=== PATIENT | male | born 1960 | race African-American/Black ===

== ENCOUNTER 2018-09-01 18:50 | Emergency (ER) | payer OTHER ==
[~2018-09-01] VITALS: Ht 185.4 cm; Wt 87.5 kg
[~2018-09-01 18:50] MED LIST: CELEBREX50 MG; DULCOLAX5 MG; FISH OIL300 MG; FLEXERIL PO; KEFLEX500 MG PO; LEVOTHYROXIN0.088 MG PO; LIPITOR20 MG PO; MOBIC7.5 MG PO; NEURONTIN100 MG PO; NITROGLYCERIN0.4 MG SUBLING; NORFLEX100 MG PO; NORVASC 5 MG TAB5 MG PO; PREDNISONE 10 M10 MG PO; TRAMADOL 50 MG50 MG PO
[2018-09-01 19:25] LABS: BASOPHILS 0.5 % (0.0-2.0); EOSINOPHILS 3.5 % (0.0-3.0); HEMATOCRIT 37.9 % (42.0-52.0); HEMOGLOBIN 12.9 gm/dL (14.0-18.0); LYMPHOCYTES 22.1 % (24.0-44.0); MCH 32.2 pg (26.0-34.0); MCHC 34.2 g/dL (28.0-37.0); MCV 94.3 fL (80.0-100.0); MONOCYTES 4.2 % (1.0-8.0); PLATELET COUNT 204 thou/uL (150-400); POLYS 69.7 % (36.0-66.0); RBC 4.02 mil/uL (4.50-6.00); RDW 15.4 % (10.5-14.5); WBC 7.1 thou/uL (4.0-11.0)
[2018-09-01 19:33] LABS: CALCIUM 9.1 mg/dL (8.5-10.1); CREATININE 1.2 mg/dL (0.7-1.3); POTASSIUM 3.9 mmol/L (3.5-5.1)
[2018-09-01 19:39] LABS: ALBUMIN 3.6 g/dL (3.4-5.0); TOTAL BILIRUBIN 0.6 mg/dL (<0.1-1.0); TOTAL PROTEIN 6.9 g/dL (6.4-8.2)
[2018-09-01] MEDS ORDERED: KEFLEX500 M1 PO (20:13)
[2018-09-01] MEDS ORDERED: NORCO 5-325 TA1 EACH PO (20:13)
[2018-09-01 20:42] VITALS: BP 101/71
== END 2018-09-01 20:43 | disposition home or self-care (01) ==
LOC: ER 18:50
PROVIDERS: Physician Assistant
DX: T20.26XA Burn of second degree of forehead and cheek, initial encounter (principal); T31.0 Burns involving less than 10% of body surface; F17.210 Nicotine dependence, cigarettes, uncomplicated; I10 Essential (primary) hypertension; E03.9 Hypothyroidism, unspecified; Z88.8 Allergy status to other drugs, medicaments and biological substances; Z91.013 Allergy to seafood

== ENCOUNTER → 2018-09-07 | Outpatient (CLI) | payer OTHER ==
[~2018-09-07] MED LIST changes: +KEFLEX500 M1 PO; +NORCO 5-325 TA1 EACH PO
== END ==
LOC: HYPER 06:53
DX: T20.30XA Burn of third degree of head, face, and neck, unspecified site, initial encounter (principal); T31.0 Burns involving less than 10% of body surface; E03.9 Hypothyroidism, unspecified; I10 Essential (primary) hypertension; F17.290 Nicotine dependence, other tobacco product, uncomplicated; F41.9 Anxiety disorder, unspecified; Z79.82 Long term (current) use of aspirin; X08.8XXA Exposure to other specified smoke, fire and flames, initial encounter; Y93.89 Activity, other specified; Y92.89 Other specified places as the place of occurrence of the external cause; Y99.8 Other external cause status

== ENCOUNTER → 2020-10-12 | Outpatient (CLI) | payer OTHER ==
[~2020-10-12] VITALS: Ht 185.4 cm; Wt 90.9 kg
[~2020-10-12] MED LIST changes: +ALFUZOSIN HCL10 MG PO; +ANUSOL-HC30 GM TOP; +ASPIRIN EC325 M1 PO; +BACLOFEN 10MG T10 MG PO; +CELEXA 10 MG TA10 M1 PO; +LACTULOSE PO; -LEVOTHYROXIN0.088 MG PO; +LIPITOR 40 MG T40 M1 PO; -LIPITOR20 MG PO; +LYRICA 50 MG50 MG PO; +MELOXICAM15 MG PO; -MOBIC7.5 MG PO; +NASONEX17 GM NASAL; +NEXIUM 24HR20 M1 PO; +OMEGA 3 1,0001 EACH PO; +SYNTHROID150 MCG PO; +VIAGRA100 MG PO; +VOLTAREN GEL 1100 G1 TOP; +ZANAFLEX4 M1 PO
[2020-10-12 08:31] VITALS: BP 154/98; BP 156/103
--- NOTE | 2020-10-12 09:17 | NUR ---
Pain Clinic Assessment: 1. History of Osteoarthritis: Left Lower Extremity Right Lower Extremity SPINE History of Rheumatoid Arthritis: Not Applicable 2. Height: 6 ft. 1 in. 185.4 cm. Weight: 200.4 lb. oz. 90.901 kg. Patient's BMI: 26.4 3. Vital Signs: BP: 154/98 Pulse: 63 Resp: 20 Temp: 02 Sat: 96 ECG Mon: 4. Pain Intensity: 10 5. Fall Risk: Dizziness: Y Needs help standing or walking: Y Fallen in the last 3 months: N Fall risk comments: 6. Patient on Blood Thinner: None 7. History of Hypertension: Y 8. Opioid Therapy greater than 6 weeks: N Opiate Contract Signed: 9. Risk Assessment Tool Provided: 10. Functional Assessment Tool: MODERATE 11. Recreational Drug Use: Current within past 3 mos Drug Type: MARIJUANA Tobacco Use: Light Tobacco Smoker Tobacco Type: Cigarettes Amount or Packs/day: 1/4 How Many Years: 30 Alcohol Use: Yes Frequency: Daily Quant: 6 PACK 1/2 PINT
== END ==
LOC: PAIN 06:50
PROVIDERS: ATTEND Anesthesiology Pain Medicine
DX: M47.812 Spondylosis without myelopathy or radiculopathy, cervical region (principal); I10 Essential (primary) hypertension; E03.9 Hypothyroidism, unspecified; M25.551 Pain in right hip; M19.90 Unspecified osteoarthritis, unspecified site; G89.29 Other chronic pain

== ENCOUNTER → 2020-11-09 | Outpatient (CLI) | payer OTHER ==
[2020-10-24 08:21] VITALS: BP 129/84
[~2020-11-09] VITALS: Ht 185.4 cm; Wt 90.4 kg
[2020-11-09 12:35] VITALS: BP 101/67
--- NOTE | 2020-11-09 12:45 | NUR ---
Pain Clinic Assessment: 1. History of Osteoarthritis: Left Lower Extremity Right Lower Extremity SPINE History of Rheumatoid Arthritis: Not Applicable 2. Height: 6 ft. 1 in. 185.4 cm. Weight: 199.4 lb. oz. 90.447 kg. Patient's BMI: 26.3 3. Vital Signs: BP: 101/67 Pulse: 76 Resp: 16 Temp: 02 Sat: 98 ECG Mon: 4. Pain Intensity: 8 5. Fall Risk: Dizziness: N Needs help standing or walking: N Fallen in the last 3 months: N Fall risk comments: 6. Patient on Blood Thinner: None 7. History of Hypertension: Y 8. Opioid Therapy greater than 6 weeks: N Opiate Contract Signed: 9. Risk Assessment Tool Provided: 10. Functional Assessment Tool: MODERATE 11. Recreational Drug Use: Current within past 3 mos Drug Type: MARIJUANA Tobacco Use: Light Tobacco Smoker Tobacco Type: Cigarettes Amount or Packs/day: 3 CIGGS How Many Years: 20 Alcohol Use: Yes Frequency: Daily Quant: 2
== END | disposition home or self-care (01) ==
LOC: PAIN 10-24 06:39
PROVIDERS: ATTEND Anesthesiology Pain Medicine
DX: M54.16 Radiculopathy, lumbar region (principal); M47.812 Spondylosis without myelopathy or radiculopathy, cervical region; G89.4 Chronic pain syndrome; I10 Essential (primary) hypertension; E03.9 Hypothyroidism, unspecified; M19.90 Unspecified osteoarthritis, unspecified site; Z98.890 Other specified postprocedural states; Z79.899 Other long term (current) drug therapy; Z88.8 Allergy status to other drugs, medicaments and biological substances

== ENCOUNTER 2020-12-09 09:31 | Inpatient (IN) | payer OTHER ==
[~2020-12-09] VITALS: Ht 185.4 cm; Wt 86.2 kg
[2020-12-09] VITALS (7 sets, daily range): BP systolic 148–191; BP diastolic 86–107
--- NOTE | ~2020-12-09 | HC ---
[facility] [place] [address] CONSULTATION Name: MOE CAIN Room #: 216-P ADM IN M.R.#: [id number] Admission: 12/09/20 Attend Phys: Piero Orta MD Discharge: Date of : 58 Report #: [id number] THIS REPORT FOR: cc: FAM - Family physician unknown FAM - Family physician unknown Chani Garza DO ~ DATE OF SERVICE: 12/09/2020 NEUROLOGY CONSULTATION HISTORY OF PRESENT ILLNESS: The gentleman is a 60-year-old male who came to the Emergency Room because he feels "like a robot." The patient drinks heavily every day. He admitted to drinking "as much as I can." He also smokes 5 cigarettes a day. He was experiencing tingling in his limbs that has not changed from 2 weeks ago, but had also been seen by a neurologist at [facility]. What this workup or if a workup has even been done consists of, I do not know. The patient became agitated in the Emergency Room at about 12 o'clock and was given Geodon 20 mg IM stat and lorazepam 1 mg IV stat. By the time the patient got to [address] [place] [address], he was obtunded and was barely arousable even with a sternal rub. A code stroke was called. The patient had a repeat scan of his head, which was unremarkable and I was asked to see the patient immediately because of his change in mentation. The patient is still obtunded and cannot provide any history, so this previous history is obtained from the medical record and by speaking with the Emergency Room physician. PAST MEDICAL HISTORY: Hypertension, hypothyroidism, back pain, hip pain, degenerative joint disease, polyarthralgia, carpal tunnel syndrome, spondylosis. PAST SURGICAL HISTORY: Repair of a right lower extremity fracture. MEDICATIONS: At home; amlodipine 10 mg daily, levothyroxine 150 mcg daily, atorvastatin 40 mg daily, citalopram 40 mg daily, diclofenac gel q.i.d., alfuzosin 10 mg daily, Nasonex 2 sprays daily, Zanaflex 4 mg t.i.d., lactulose 10 grams daily, aspirin 325 mg daily, Lyrica 100 mg t.i.d. ALLERGIES: DOXYCYCLINE and SHRIMP. SOCIAL HISTORY: The patient smokes cigarettes. He drinks alcohol, which typically consists of beer and tyson. He also uses recreational drugs including marijuana, cocaine and PCP. PHYSICAL EXAMINATION: VITAL SIGNS: Temperature 35.8, pulse rate 76, respiratory rate 17, blood [address] [address] CONSULTATION Name: MOE CAIN Room #: 216-[facility]#: [id number] Admission: 12/09/20 Attend Phys: Piero Orta MD Discharge: Date of : 58 Report #: [id number] pressure 161/97, bedside pulse oximetry 97%. LABORATORY DATA: Hematology: White blood cell count 5, hemoglobin 13.9, hematocrit 42.7, MCV 94.3, platelet count 206,000. Urinalysis, trace ketones, trace blood. ABG: pH 7.379, pCO2 of 45.9, pO2 of 85, oxygen saturation 96.2%. Chemistry: Sodium 141, potassium 3.7, chloride 105, carbon dioxide 29, BUN 10, creatinine 0.9, GFR 104, glucose 86. Calcium 8.8, phosphorus 3, magnesium 1.8. Liver functions are normal with the exception of AST, which is 45. Ammonia 24. Creatinine kinase 472, lipase 541. TSH 0.529. Toxicology positive for PCP, cocaine, marijuana. Serum alcohol level less than 10. NEUROLOGIC: When I initially examined the patient, he was barely responsive to sternal rub. I went back 10 or 15 minutes later and he became awake. I asked him where he was, he said "hospital." Cranial nerves 2 through 12 are grossly intact. Motor exam demonstrates symmetrical movement of all 4 extremities with tone and bulk normal. Reflexes were trace throughout. Plantar responses are extensor on the left, flexor on the right. There was no obvious evidence of dysmetria. Gait was not tested. IMPRESSION: I suspect the patient's episode of obtundation was secondary to medication effect. I have ordered an MRI of the head with and without contrast and MRI of the cervical spine with and without contrast for tomorrow. B12 level is pending. His thyroid is normal and he is on levothyroxine 100 mcg daily. I would be cautious about giving this gentleman sedation, although he does need to be monitored for alcohol withdrawal. If he does become agitated, I would recommend consulting Psychiatry. We have also requested his medical records from [facility], particularly any Neurology records and testing. Dr. Laird will be following the patient as of Thursday. By: 1631 44 Chani Garza, DO /nt
--- NOTE | 2020-12-09 09:55 | NUR ---
OBTAINED VERBAL CONSENT TO TREAT PATIENT PER GUARDIAN RUSH CAIN ([facility] [place]) [phone], VERIFIED BY #2 RN.
[2020-12-09 10:19] LABS: ABSOLUTE NEUTROPHILS 3.5 thou/uL (1.4-8.2); BASOPHILS 0.4 % (0.0-2.0); EOSINOPHILS 5.4 % (0.0-3.0); HEMATOCRIT 42.7 % (42.0-52.0); HEMOGLOBIN 13.9 gm/dL (14.0-18.0); LYMPHOCYTES 19.4 % (24.0-44.0); MCH 30.8 pg (26.0-34.0); MCHC 32.7 g/dL (28.0-37.0); MCV 94.3 fL (80.0-100.0); MONOCYTES 5.5 % (1.0-8.0); PLATELET COUNT 206 thou/uL (150-400); POLYS 69.3 % (36.0-66.0); RBC 4.53 mil/uL (4.50-6.00); RDW 16.2 % (10.5-14.5)
--- NOTE | 2020-12-09 10:21 | NUR ---
INSURANCE CARDS X2 AND ID GIVEN DIRECTLY BACK TO PATIENT, WITNESSED HIM PLACE HIS CARDS DIRECTLY BACK INTO HIS WALLET.
[2020-12-09 10:27] LABS: CALCIUM 8.8 mg/dL (8.5-10.1); CREATININE 0.9 mg/dL (0.7-1.3); POTASSIUM 3.7 mmol/L (3.5-5.1)
[2020-12-09 10:37] LABS: ALBUMIN 3.6 g/dL (3.4-5.0); DIRECT BILIRUBIN 0.2 mg/dL (<0.1-0.2); TOTAL BILIRUBIN 0.7 mg/dL (0.2-1.0); TROPONIN-I 0.07 ng/mL (<0.06)
[2020-12-09 10:46] LABS: MAGNESIUM 1.8 mg/dL (1.8-2.4)
[2020-12-09 11:16] LABS: URINE BILIRUBIN NEGATIVE (Negative); URINE BLOOD TRACE (Negative); URINE CLARITY CLEAR; URINE COLOR YELLOW; URINE GLUCOSE-RANDOM* NEGATIVE (Negative); URINE KETONES TRACE (Negative); URINE LEUKOCYTES-REFLEX NEGATIVE (Negative); URINE NITRITE-REFLEX NEGATIVE (Negative); URINE PROTEIN (DIPSTICK) NEGATIVE (Negative); URINE SPECIFIC GRAVITY 1.015 (1.005-1.035); URINE UROBILINOGEN 0.2 E.U./dl (0.2-1.0)
[2020-12-09 11:23] LABS: AMP/METHAMP Negative (Negative); BARBITURATES Negative (Negative); BENZODIAZEPINES Negative (Negative); COCAINE POSITIVE (Negative); METHADONE Negative (Negative); OPIATES Negative (Negative); PCP POSITIVE (Negative)
--- NOTE | 2020-12-09 15:23 | NUR ---
code stroke called at 1508. patient responds to hard stimuli. moving extremities. coughing and opening eyes. per emar patient recieved a dose of ativan and geodon in ED. orders for head CT and stat neuro consult placed. Dr. braun will speak with Dr. love (neurologist)
[2020-12-09 15:59] LABS: BE(vivo) 0.8 mmol/L (-2 to +3); HCO3 26.5 mmol/L (22.0-26.0); PCO2 45.9 mmHg (35.0-45.0); pH 7.379 (7.360-7.450); sO2 96.2 % (92.0-98.0)
--- NOTE | 2020-12-09 16:32 | NUR ---
PT ARRIVED AT 1420 FROM THE ER WITH NO HANDOFF REPORT OR TELEPHONE REPORT. EMERGENCY ROOM TECH, ATTEMPTED TO GET PATIENT FROM STRETCHER TO BED, PT FELL BACK ONTO THE ER STRETCHER. PT WHEN I ARRIVED IN THE ROOM, PT WAS OBTUNDED, ONLY OPENING EYES TO HARD STERNAL RUBS AND MUMBLING AT TIMES. DR. QUINN WAS NOTIFIED OF PTS CONDITION. DR QUINN STATES PT WAS ALERT AND VERBAL IN THE ER SPEAKING IN FULL SENTENCES. DR QUINN STATES TO CALL A CODE STROKE. PT TO CT WITH PRIMARY RN AND GRAHAM RN. PT REMAINED OBTUNDED DURING THE SCAN. PTS CT HEAD WAS NEGATIVE. NEUROLOGY SEEN PT ON 2 NORTH AND STATES PT IS JUST SLEEPING. DR QUINN STATES TO LEAVE HIM ON 2NORTH VERSUS ICU TRANSFER. PTS VSS. PT REMAINS ASLEEP. WILL CONTINUE TO MONITOR.
--- NOTE | 2020-12-09 23:36 | NUR ---
UPON MIDNIGHT VITAL SIGNS PATIENT FOUND TO HAVE HIGH BLOOD PRESSURE 166/107. PROVIDER CONTACTED WITH ONETIME MEDICATION GIVEN. NURSE TO CONTINUE TO ASSESS.
[2020-12-10 03:33] LABS: HEMATOCRIT 47.9 % (42.0-52.0); HEMOGLOBIN 15.6 gm/dL (14.0-18.0); MCHC 32.6 g/dL (28.0-37.0); MCV 95.3 fL (80.0-100.0); RBC 5.03 mil/uL (4.50-6.00); RDW 16.4 % (10.5-14.5); WBC 4.9 thou/uL (4.0-11.0)
[2020-12-10 03:46] LABS: ANION GAP 8 mmol/L (7-16); BUN 10 mg/dL (7-18); CHLORIDE 109 mmol/L (98-107); CO2 29 mmol/L (21-32); CREATININE 1.1 mg/dL (0.7-1.3); GLUCOSE 83 mg/dL (74-106); POTASSIUM 3.8 mmol/L (3.5-5.1); SODIUM 146 mmol/L (136-145); TROPONIN-I <0.06 ng/mL (<0.06)
[2020-12-10 03:58] VITALS: BP 135/86
--- NOTE | 2020-12-10 07:38 | EKG ---
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 : 1960 Requested By: Anthony Bahena Order Number: [id number] MD: Maury Snow Measurements Intervals [place] Rate: 55 P: 64 SD: 169 QRS: 43 QRSD: 89 T: 48 QT: 462 QTc: 442 Interpretive Statements Sinus rhythm Supraventricular bigeminy Baseline wander in lead(s) V5 Compared to ECG 09/16/2016 06:39:38 Left ventricular hypertrophy no longer present Myocardial infarct finding no longer present Electronically Signed On 12-10-2020 7:38:32 [employer] by Maury Snow [email or web address] <ELECTRONICALLY SIGNED> By: Maury Snow MD, [facility] 12/10/20737 7 7 Maury Snow MD, [facility] /EPI
[2020-12-10 07:44] VITALS: BP 142/88
--- NOTE | 2020-12-10 08:53 | NUR ---
ASSUMED PT CARE AT 0700. PT RESTING AT THIS TIME. 0840, ASSESSMENT PERFORMED AND CHARTED, PT A&OX4 AND WAS ABLE TO COMPLETE AN MRI SCREENING. MEDICATION ADMINISTRATION. WILL CONTINUE TO MONITOR.
[2020-12-10 12:01] VITALS: BP 150/92
--- NOTE | 2020-12-10 12:26 | 2DMMODE ---
[facility] [place] [address] [place] [address] 2 D/M-MODE ECHOCARDIOGRAM Name: MOE CAIN Room #: 216-P ADM IN M.R.#: [id number] Admission: 12/09/20 Attend Phys: Piero Orta MD Discharge: Date of : 58 Report #: [id number] THIS REPORT FOR: cc: FAM - Family physician unknown FAM - Family physician unknown Angel Hurt MD [facility] ~ APPROVED REPORT Study performed: 12/10/2020 11:45:08 EXAM: Comprehensive 2D, Doppler, and color-flow Echocardiogram Patient Location: Bedside Room #: 216 Status: routine BSA: 2.13 HR: 54 bpm BP: 142/88 mmHg Rhythm: Bradycardia Other Information Study Quality: Good Indications Hypertension/HDD 2D Dimensions RVDd: 24.08 mm IVSd: 8.08 (7-11mm) LVOT Diam: 23.37 (18-24mm) LVDd: 58.47 mm PWd: 6.59 (7-11mm) Ascending Ao: 30.32 (22-36mm) LVDs: 42.83 (25-40mm) Left Atrium: 37.14 (27-40mm) Aortic Root: 33.38 mm IVC: 19.00 mm Volumes Left Atrial Volume (Systole) Single Plane 4CH: 19.59 mL Single Plane 2CH: 44.62 mL Aortic Valve AoV Peak Sascha.: 1.33 m/s AO Peak Gr.: 7.03 mmHg LVOT Max P.37 mmHg LVOT Max V: 0.92 m/s GLORIA Vmax: 2.97 cm2 [facility] [address] [place] [address] 2 D/M-MODE ECHOCARDIOGRAM Name: MOE CAIN Room #: 216-P [facility] IN [facility].#: [id number] Admission: 12/09/20 Attend Phys: Alfredo Meier Discharge: Date of : 58 Report #: [id number] Mitral Valve E/A Ratio: 0.7 MV Decel. Time: 216.55 ms MV E Max Sascha.: 0.52 m/s MV A Sascha.: 0.74 m/s MV PHT: 62.80 ms IVRT: 96.89 ms Pulmonary Vein P Vein S: 0.34 m/s P Vein A: 0.24 m/s P Vein D: 0.30 m/s P Vein A Dur.: 143.0 msec P Vein S/D Ratio: 1.13 Tricuspid Valve TR Peak Sascha.: 2.35 m/s TR Peak Gr.: 22.07 mmHg PA Pressure: 32.00 mmHg Left Ventricle Left ventricle is dilated. There is normal LV segmental wall motion. There is normal left ventricular wall thickness. Left ventricular systolic function is at the lower limits of normal LVEF 50%. Mild diastolic dysfunction Right Ventricle The right ventricle is normal size. The right ventricular systolic function is normal. Atria The left atrium size is normal. The right atrium size is normal. Aortic Valve The aortic valve is normal in structure, trileaflet. No aortic regurgitation is present. There is no aortic valvular stenosis. Mitral Valve The mitral valve is normal in structure. Mild mitral regurgitation. No evidence of mitral valve stenosis. Tricuspid Valve The tricuspid valve is normal in structure. There is mild tricuspid regurgitation. Estimated PAP 30 mmHg. Pulmonic Valve [facility] [address] [place] [address] 2 D/M-MODE ECHOCARDIOGRAM Name: MOE CAIN Room #: 216-P [facility] IN M.R.#: [id number] Admission: 12/09/20 Attend Phys: Alfredo Meier Discharge: Date of : 58 Report #: [id number] The pulmonary valve is normal in structure. There is no pulmonic valvular regurgitation. Great Vessels The aortic root is normal in size. IVC is normal in size and collapses <50% with inspiration. Pericardium There is no pericardial effusion. <Conclusion> Left ventricular systolic function is at the lower limits of normal There is normal LV segmental wall motion. LVEF 50%. Mild diastolic dysfunction The aortic valve is normal in structure, trileaflet. No aortic regurgitation or stenosis The mitral valve is normal in structure. Mild mitral regurgitation. There is mild tricuspid regurgitation. Estimated pulmonary artery pressure of 30 mmHg. There is no pericardial effusion. <ELECTRONICALLY SIGNED> By: Angel Hurt MD, FACC 12/10/20 1226 1226 1226 Angel Hurt MD, FACC /INF
[2020-12-10 15:28] VITALS: BP 140/83
--- NOTE | 2020-12-10 17:25 | NUR ---
RN ENTERED THE UNIT FROM ICU, PT HAD A SPEAKER TURNED UP AT A MODERATE VOLUME PLAYING RAP MUSIC THAT HAD INAPPROPRIATE LANGUAGE. I ENTERED THE ROOM AND ASKED THE PATIENT TO TURN IT DOWN. I STATED THAT HE MAY HAVE THE SPEAKER AT A LOW VOLUME THAT NO ONE CAN HEAR FROM THE HALLWAY, PT STATES TO JUST CLOSE HIS "FUCKING" DOOR, I STATED TO THE PATIENT THAT HE IS A HIGH FALL RISK AND THAT I CANNOT CLOSE HIS DOOR. PT AGREED TO KEEP THE VOLUME AT A LOW LEVEL. 5 MINUTES LATER, I COULD AGAIN HEAR THE MUSIC FROM THE NURSES STATION, I AGAIN ASKED THE PATIENT TO TURN IT DOWN. I STATED TO THE PATIENT IF THE VOLUME GETS LOUD AGAIN THAT WE WILL HAVE TO REEVALUATE THE SPEAKER. PT STATES "CLOSE THE FUCKING DOOR AND LEAVE ME ALONG." I EDUCATED TO THE PATIENT AGAIN I CANNOT CLOSE THE DOOR DUE TO HIM BEING A FALL RISK.
[2020-12-10 19:26] VITALS: BP 147/95
[2020-12-11 04:30] VITALS: BP 148/86
[2020-12-11 08:00] VITALS: BP 149/99
--- NOTE | 2020-12-11 08:04 | NUR ---
Pt cooperative most of night until around 0300. Yelling and cussing at RN, insist he has not taken any of his meds. Had overview of Mar with patient of meds ordered. Remains agitated with cigwa 7- Ativan given this am. Cont plan of care
--- NOTE | 2020-12-11 09:24 | NUR ---
met with patient who admits with nstemi. Patient reports he lives in home alone. 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 Therapy evals in process. He does have a walker/cane in home as needed. PCP Dr Melonie Mcleod from [facility]. Patient reports he has service from [facility] 5 days a week they assist with cooking, cleaning and medication management. Plan home once stable possible HH care. Therapy evals in process. Message with [facility] to call [facility] regarding services.
[2020-12-11 11:40] VITALS: BP 162/99
[2020-12-11] MEDS ORDERED: BENICAR20 MG PO (12:05)
[2020-12-11] MEDS ORDERED: HYDROCHLOROTHIA25 M1 PO (13:51)
[2020-12-11 15:20] VITALS: BP 140/102
--- NOTE | 2020-12-11 15:50 | NUR ---
AAOX4. DENIES CP, SOA. FALL PRECAUTIONS IN PLACE. SR PER TELE.
[2020-12-11 19:58] VITALS: BP 149/85
[2020-12-12 05:07] VITALS: BP 154/99
--- NOTE | 2020-12-12 07:50 | NUR ---
ASSUMED PT CARE AT 1900. VSS. PT A&0X4, WANTS TO GO HOME. PT STATED HE USUALLY TAKES LYRICA AND NOT GABAPENTIN FOR HIS NEUROPATHY. DR QUINN NOTIFIED THIS AM. PT IS STABLE, HAD A RESTFUL NOC, WILL CONTINUE TO MONITOR.
[2020-12-12 08:57] VITALS: BP 154/99
[2020-12-12 09:18] VITALS: BP 144/103
--- NOTE | 2020-12-12 16:58 | NUR ---
ASSUMED CARE OF PT AT 0700, PT WAS DISCHARGED AND LEFT THE UNIT AT 0930
== END 2020-12-12 09:36 | disposition home or self-care (01) | DRG 551 ==
LOC: ER 09:31 → 2N 12:34 → EROBS 12:34 → 2N 14:18
PROVIDERS: Emergency Medicine; ADMIT Hospitalist; ATTEND Hospitalist
DX: M48.02 Spinal stenosis, cervical region (principal); G92 Toxic encephalopathy; I21.4 Non-ST elevation (NSTEMI) myocardial infarction; M48.04 Spinal stenosis, thoracic region; F19.10 Other psychoactive substance abuse, uncomplicated; R77.8 Other specified abnormalities of plasma proteins; G89.29 Other chronic pain; I10 Essential (primary) hypertension; E03.9 Hypothyroidism, unspecified; F14.19 Cocaine abuse with unspecified cocaine-induced disorder; M19.09 Primary osteoarthritis, other specified site; M54.16 Radiculopathy, lumbar region; T42.4X5A Adverse effect of benzodiazepines, initial encounter; F17.210 Nicotine dependence, cigarettes, uncomplicated; G62.1 Alcoholic polyneuropathy; Z87.81 Personal history of (healed) traumatic fracture; Z88.8 Allergy status to other drugs, medicaments and biological substances; Y92.89 Other specified places as the place of occurrence of the external cause; Z79.82 Long term (current) use of aspirin; Z79.899 Other long term (current) drug therapy; Z82.49 Family history of ischemic heart disease and other diseases of the circulatory system; Z28.21 Immunization not carried out because of patient refusal
CPT/HCPCS: 10081

== ENCOUNTER → 2021-02-06 | Outpatient (CLI) | payer OTHER ==
[~2021-02-06] VITALS: Ht 185.4 cm; Wt 88.2 kg
[~2021-02-06] MED LIST changes: +BENICAR20 MG PO; +HYDROCHLOROTHIA25 M1 PO
[2021-02-06 09:16] VITALS: BP 126/72
--- NOTE | 2021-02-06 09:35 | NUR ---
Pain Clinic Assessment: 1. History of Osteoarthritis: Left Lower Extremity Right Lower Extremity SPINE History of Rheumatoid Arthritis: Not Applicable 2. Height: 6 ft. 1 in. 185.4 cm. Weight: 194.5 lb. oz. 88.225 kg. Patient's BMI: 25.7 3. Vital Signs: BP: 126/72 Pulse: 54 Resp: 16 Temp: 02 Sat: 100 ECG Mon: 4. Pain Intensity: 10 5. Fall Risk: Dizziness: N Needs help standing or walking: Y Fallen in the last 3 months: N Fall risk comments: 6. Patient on Blood Thinner: None 7. History of Hypertension: Y 8. Opioid Therapy greater than 6 weeks: N Opiate Contract Signed: 9. Risk Assessment Tool Provided: 10. Functional Assessment Tool: MODERATE 11. Recreational Drug Use: Current within past 3 mos Drug Type: Tobacco Use: Current Every Day Smoker Tobacco Type: Cigarettes Amount or Packs/day: How Many Years: Alcohol Use: Yes Frequency: Quant:
== END | disposition home or self-care (01) ==
LOC: PAIN 01-30 08:11
PROVIDERS: ATTEND Anesthesiology Pain Medicine
DX: M54.16 Radiculopathy, lumbar region (principal); G89.29 Other chronic pain; M19.90 Unspecified osteoarthritis, unspecified site; F17.210 Nicotine dependence, cigarettes, uncomplicated; Z98.890 Other specified postprocedural states; Z79.899 Other long term (current) drug therapy